=== PATIENT | male | born 1990 | race Caucasian/White ===

== ENCOUNTER 2019-12-29 05:06 | Day surgery (SDC) | payer OTHER ==
[2019-12-24 17:33] VITALS: BMI 27.3
--- NOTE | 2019-12-25 09:41 | HP ---
[facility] - Chief Complaint Chief Complaint: left forearm foreign body - Past Medical History Allergies/Adverse Reactions: Allergies Allergy/AdvReac Type Severity Reaction Status Date / Time No Known Drug Allergies Allergy Verified 12/24/19 17:35 - Current Medications Current Medications: Home Medications Medication Instructions Recorded NK [No Known Home Medication] 12/24/19 [facility] Physical Exam - Physical Examination General Appearance: Well Nourished, Well Developed, Alert & Oriented x3 ENT: Clear Lung: Normal air movement Extremities: Other (left forearm- + ttp, full rom ,nvi) Neurological: Intact, Alert, Oriented [facility] Impression/Plan - Impression/Plan Impression: left forearm foreign body Operative Procedure: left forearm foreign body excision Date to be Performed: 12/25/19
[2019-12-29 08:18] VITALS: TEMP 98
[2019-12-29] MEDS ORDERED: LIDOCAINE HCL 1%, 10 MG/ML (20ML VIAL) ONE (09:18)
[2019-12-29] MEDS ORDERED: MIDAZOLAM HCL 2 MG/2 ML SINGLE DOSE VIAL ONE (09:47)
[2019-12-29] MEDS ORDERED: PROPOFOL 20 ML ONE (09:48)
[2019-12-29] MEDS ORDERED: ceFAZolin SODIUM 1 GM VIAL ONE (10:00)
[2019-12-29] MEDS ORDERED: LIDOCAINE HCL 1%, 10 MG/ML (20ML VIAL) NR ONE (10:03)
[2019-12-29] MEDS ORDERED: BUPIVACAINE HCL/PF 0.5% (5 MG/ML) 30 ML VIAL IJ ONE (10:03)
--- NOTE | 2019-12-29 10:20 | OP ---
Operative Note - Note: Operative Date: 12/29/19 Pre-Operative Diagnosis: foreign body left forearm Operation: excision foreign body left forearm Post-Operative Diagnosis: Same as Pre-op Surgeon: Chacorta Mayers Anesthesiologist/HAND PASTER: Tomasz Garcia Anesthesia: Local, MAC Specimens Removed: foreign body, metal Estimated Blood Loss (mls): 0 Drains, Volume Out (mls): 0 Blood Volume Replaced (mls): 0 Fluid Volume Replaced (mls): 500 Operative Report Dictated: Yes
[2019-12-29] MEDS ORDERED: ONDANSETRON 4 MG/2 ML VIAL IVPUSH PRN (10:51)
[2019-12-29] MEDS ORDERED: oxyCODONE HCL 5 MG TABLET PO PRN ×2 (10:51)
[2019-12-29 12:46] VITALS: BP 120/70; PULSE 60
--- NOTE | 2019-12-29 17:03 | OP ---
DATE OF OPERATION: 12/29/2019 PREOPERATIVE DIAGNOSIS: Foreign body left forearm. POSTOPERATIVE DIAGNOSIS: Foreign body left forearm, metal shrapnel. PROCEDURE: Excision foreign body left forearm. DRAINS: None. COMPLICATIONS: None. SPECIMENS: Foreign material left forearm, likely metal. SURGEON: Chacorta Ac M.D. STOCKBROKING DEALER: None. ANESTHESIOLOGIST: Ancelmo Brown MD. ANESTHESIA: MAC anesthesia, local injection of 8 mL 0.5% Marcaine, 1% lidocaine mix. BLOOD LOSS: None. BLOOD GIVEN: None. 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 After understanding the potential risks, complications, alternatives, benefits to surgery versus nonsurgical treatment, the patient elected to undergo this procedure. DESCRIPTION OF PROCEDURE; The patient was brought to the operating room, peripheral IV placed, IV sedation given, 2 g of IV Ancef was given. MAC anesthesia was induced. The entire case was done under 3.8 loupe magnification. The left upper extremity was prepped and draped in the sterile fashion. A longitudinal incision was marked out with a marking pen and 8 mL of 0.5% Marcaine, 1% lidocaine mix was injected in and around the surgical incision. The left upper extremity was then elevated, exsanguinated with an Esmarch bandage, and the tourniquet inflated to 250 mmHg. A longitudinal incision was made. It was about 1 cm or less with a number 15 scalpel blade and superficial dissection done with a curved Iris scissors. I was able to identify 2 small pieces of metal; they were both excised and sent off the field as specimen. There were some discolorations and chronic inflammation. This tissue was also excised, although the volume was quite small. The area was copiously irrigated and washed out with 10 mL syringe of normal saline. I did not see or feel any abnormal tissue or foreign material. It was irrigated and washed out again, and closure done with 4-0 undyed Vicryl in the deep dermal layer, and final skin reapproximation was done with a running subcuticular 4-0 Biosyn stitch. The area was then washed and dried and covered with Steri-Strips, 4x4, gauze, Webril, and Coban. The tourniquet was taken down after a total tourniquet time of 7 minutes. There were no complications during the case. The patient tolerated the procedure quite well and was brought to the ambulatory recovery in stable condition. CHACORTA AC M.D. [id number]
--- NOTE | 2019-12-31 13:45 | PATH ---
Surgical Pathology Report Patient Name: DRU CRUZ Med. Rec. #: [id number] /Age/Gender: 1990 (Age: 29) / M Account: [id number] Location: [facility] SURGICAL Taken: 12/29/2019 Received: 12/29/2019 Reported: 12/31/2019 Physicians: Chacorta Mayers M.D. Specimen(s) Received FOREIGN BODY Clinical History Left arm foreign body Final Diagnosis FOREIGN BODY, REMOVAL: CONSISTENT WITH FOREIGN BODY. GROSS EXAMINATION ONLY. Electronically Signed Latosha Merritt M.D. Gross Description Received fresh labeled "foreign body," is a 0.3 x 0.2 x 0.1 cm cline metallic, sharp foreign body. No soft tissue is present. No sections are submitted, gross only. /12/29/2019 saudi/12/29/2019
== END 2019-12-29 12:15 | disposition home or self-care (01) ==
LOC: JASU-SURG 05:06
PROVIDERS: ATTEND Orthopaedic Surgery
PROC: 0JCH0ZZ Extirpation of Matter from Left Lower Arm Subcutaneous Tissue and Fascia, Open Approach (ICD-10-PCS; principal; 2019-12-29 09:00)
DX: S50.852A Superficial foreign body of left forearm, initial encounter (principal); X58.XXXA Exposure to other specified factors, initial encounter; Y93.9 Activity, unspecified; Y92.9 Unspecified place or not applicable
CPT/HCPCS: 88300-TC